=== PATIENT | female | born 1970 | race Caucasian/White ===

== ENCOUNTER 2021-07-06 15:07 | Emergency (ER) | payer OTHER ==
[~2021-07-06] VITALS: Ht 149.9 cm; Wt 99.5 kg
[2021-07-06 16:58] VITALS: BP 142/85
[2021-07-06] MEDS ORDERED: GABAPENTIN 100 MG CAPSULE PO ONE (17:00)
== END 2021-07-06 17:27 | disposition home or self-care (01) ==
LOC: EMS 15:07
DX: S86.011A Strain of right Achilles tendon, initial encounter (principal); I10 Essential (primary) hypertension; Z88.5 Allergy status to narcotic agent; Z88.8 Allergy status to other drugs, medicaments and biological substances; X50.1XXA Overexertion from prolonged static or awkward postures, initial encounter; Y93.89 Activity, other specified; Y92.89 Other specified places as the place of occurrence of the external cause; Y99.8 Other external cause status
CPT/HCPCS: 99283